=== PATIENT | female | born 1970 | race Caucasian/White ===

== ENCOUNTER 2017-11-12 08:48 | Emergency (ER) | payer OTHER ==
[~2017-11-12] VITALS: Ht 175.3 cm; Wt 99.8 kg
[~2017-11-12 08:48] MED LIST: MOBIC7.5 M1 PO; PRILOSEC 20 MG20 MG; SERTRALINE
[2017-11-12] MEDS ORDERED: NASACORT10.8 ML NASAL (09:01)
[2017-11-12] MEDS ORDERED: VENLAFAXINE HCL25 MG PO (09:01)
[2017-11-12] MEDS ORDERED: ALLEGRA ALLERGY60 MG PO (09:01)
[2017-11-12] MEDS ORDERED: NORCO 5-325 TA1 EACH PO (09:50)
[2017-11-12 10:20] VITALS: BP 147/93
== END 2017-11-12 10:31 | disposition home or self-care (01) ==
LOC: M.ERS 08:48
DX: S82.892A Other fracture of left lower leg, initial encounter for closed fracture (principal); F41.9 Anxiety disorder, unspecified; Z98.890 Other specified postprocedural states; Z90.710 Acquired absence of both cervix and uterus; Z90.10 Acquired absence of unspecified breast and nipple; W10.8XXA Fall (on) (from) other stairs and steps, initial encounter; Y93.89 Activity, other specified; Y92.89 Other specified places as the place of occurrence of the external cause; Y99.8 Other external cause status